=== PATIENT | male | born 1940 | race Caucasian/White ===

== ENCOUNTER 2018-08-12 08:19 | Emergency (ER) | payer MEDICARE, BC ==
[~2018-08-12] VITALS: Ht 177.8 cm; Wt 95.3 kg
[2018-08-12] MEDS ORDERED: FISH OIL 1,001000 M2 PO (08:37)
[2018-08-12] MEDS ORDERED: LOVASTATIN 20 M20 MG PO (08:37)
[2018-08-12] MEDS ORDERED: CENTRUM SILVER1 EAC4 PO (08:37)
[2018-08-12] MEDS ORDERED: AVODART0.5 MG PO (08:37)
[2018-08-12] MEDS ORDERED: OXYBUTYNIN CHLO15 MG PO (08:38)
[2018-08-12] MEDS ORDERED: TERAZOSIN HCL5 MG PO (08:38)
[2018-08-12] MEDS ORDERED: HYDROCODONE-AP1 EAC6 PO (09:07)
[2018-08-12] MEDS ORDERED: FLEXERIL PO (09:07)
[2018-08-12 09:19] VITALS: BP 145/70
== END 2018-08-12 09:19 | disposition home or self-care (01) ==
LOC: M.ERS 08:19
DX: S76.011A Strain of muscle, fascia and tendon of right hip, initial encounter (principal); I10 Essential (primary) hypertension; X58.XXXA Exposure to other specified factors, initial encounter; Y92.89 Other specified places as the place of occurrence of the external cause; Y93.89 Activity, other specified; Y99.8 Other external cause status

== ENCOUNTER → 2018-09-02 | Outpatient (CLI) | payer MEDICARE, BC ==
[~2018-09-02] MED LIST: AVODART0.5 MG PO; CENTRUM SILVER1 EAC4 PO; FISH OIL 1,001000 M2 PO; FLEXERIL PO; HYDROCODONE-AP1 EAC6 PO; LOVASTATIN 20 M20 MG PO; OXYBUTYNIN CHLO15 MG PO; TERAZOSIN HCL5 MG PO
== END ==
LOC: M.MRI 16:54
DX: M51.16 Intervertebral disc disorders with radiculopathy, lumbar region (principal); M48.061 Spinal stenosis, lumbar region without neurogenic claudication

== ENCOUNTER → 2018-09-15 | Outpatient (CLI) | payer MEDICARE, BC | END | disposition home or self-care (01) | LOC: M.PC 05:13 | DX: M16.11 Unilateral primary osteoarthritis, right hip (principal); G89.29 Other chronic pain; Z79.899 Other long term (current) drug therapy ==

== ENCOUNTER → 2018-09-29 | Outpatient (CLI) | payer MEDICARE, BC | END | disposition home or self-care (01) | LOC: M.PC 05:23 | DX: M54.16 Radiculopathy, lumbar region (principal); M16.11 Unilateral primary osteoarthritis, right hip; Z98.890 Other specified postprocedural states; Z79.891 Long term (current) use of opiate analgesic ==

== ENCOUNTER → 2018-10-13 | Outpatient (CLI) | payer MEDICARE, BC | LOC: M.PC 03:35 | DX: M51.16 Intervertebral disc disorders with radiculopathy, lumbar region (principal); M48.061 Spinal stenosis, lumbar region without neurogenic claudication; M79.604 Pain in right leg; M16.11 Unilateral primary osteoarthritis, right hip ==

== ENCOUNTER 2020-09-23 02:50 | Emergency (ER) | payer MEDICARE, BC ==
[~2020-09-23] VITALS: Ht 180.3 cm; Wt 97.5 kg
[2020-09-23] MEDS ORDERED: DUTASTERIDE0.5 MG PO (03:08)
[2020-09-23] MEDS ORDERED: COZAAR 25 MG TA25 M1 PO (03:10)
[2020-09-23] MEDS ORDERED: FISH OIL 1,0001 EAC9 PO (03:11)
[2020-09-23] MEDS ORDERED: ESTER-C 500 MG1 EACH PO (03:13)
[2020-09-23] MEDS ORDERED: VITAMIN B-1100 M2 PO (03:13)
[2020-09-23] MEDS ORDERED: CRANBERRY500 M3 PO (03:13)
[2020-09-23] MEDS ORDERED: HYDROCODON-ACE1 EAC7 PO (05:36)
[2020-09-23] MEDS ORDERED: CEPHALEXIN500 MG PO (05:36)
[2020-09-23 05:53] VITALS: BP 116/51
--- NOTE | 2020-09-23 11:50 | EKG ---
[place] [address] ELECTROCARDIOGRAM REPORT Name: DAVIDSON PEREZ Room: [facility]#: [id number] Admission: 09/23/20 Attend Phys: Discharge: 09/23/20 Date of : 38 Date of Service: 09/23/20 0259 Report #: [id number] THIS REPORT FOR: //name// [facility] ED Test Date: 2020-09-23 Test Time: 02:59:30 Pat Name: DAVIDSON PEREZ Department: Room: Gender: [employer]: : 1940 Requested By: Fiona Mckinney Order Number: [id number] MD: Mitchel Schneider Measurements Intervals [place] Rate: 90 P: 45 DE: 207 QRS: 9 QRSD: 92 T: 66 QT: 359 QTc: 440 Interpretive Statements Sinus rhythm No previous ECG available for comparison Electronically Signed On 09-23-2020 11:49:55 CDT by Mitchel Schneider [email or web address] <ELECTRONICALLY SIGNED> By: Mitchel Schneider MD, [facility] 09/23/20 1149 0259 8 Mitchel Schneider MD, FACC /EPI
== END 2020-09-23 05:53 | disposition home or self-care (01) ==
LOC: M.ERS 02:50
DX: S01.312A Laceration without foreign body of left ear, initial encounter (principal); S51.812A Laceration without foreign body of left forearm, initial encounter; W18.30XA Fall on same level, unspecified, initial encounter; Y93.89 Activity, other specified; Y92.89 Other specified places as the place of occurrence of the external cause; Y99.8 Other external cause status